=== PATIENT | male | born 1980 | race African-American/Black ===

== ENCOUNTER 2016-12-13 06:09 | Emergency (ER) | payer SELFPAY ==
[~2016-12-13 06:09] MED LIST: LORT5TAB PO; Z.0.NO CURRENT MEDS
[2016-12-13 06:10] VITALS: BP 137/81; PULSE 94; RESP 16; TEMP 98.5; O2SAT 96
--- NOTE | 2016-12-13 06:24 | PD ---
HPI Chief Complaint: Eye Problems/Injury Time Seen by Provider: 06:23 Travel History International Travel<30 days: No Contact w/Intl Traveler<30days: No Traveled to known affect area: No History of Present Illness HPI 36-year-old with no significant medical history presents to the emergency department for evaluation of an area of red on his right eye. Patient states he it does not hurt. He reports no visual disturbances. States that he woke up with it 2 days ago. He attempted Visine with no relief of symptoms. He has had no recent illnesses, fever, or chills. He cannot recall trauma. No other symptoms to report. History Past Medical Histgory Medical History: Denies Significant Hx Social History Alcohol Use: Yes (OCC) Tobacco Use: Yes (1PPD) Allergies-Medications (Allergen,Severity, Reaction): Coded Allergies: Penicillin (Verified Allergy, Unknown, Hives, 12/13/16) Reported Meds & Prescriptions Reported Meds & Active Scripts Active No Active Prescriptions or Reported Medications Review of Systems Except as stated in HPI: all other systems reviewed are Neg Physical Exam Narrative GENERAL: Well-nourished, well-developed male patient in no acute distress SKIN: Focused skin assessment warm/dry. HEAD: Normocephalic. EYES: No scleral icterus. There is a subconjunctival hematoma of the right eye extending from the 9:00 area to the 6:00 area. EOMI. PERRLA. NECK: Supple, trachea midline. No JVD or lymphadenopathy. CARDIOVASCULAR: Regular rate and rhythm without murmurs, gallops, or rubs. RESPIRATORY: Breath sounds equal bilaterally. No accessory muscle use. GASTROINTESTINAL: Abdomen soft, non-tender, nondistended. MUSCULOSKELETAL: No cyanosis, or edema. BACK: Nontender without obvious deformity. No CVA tenderness. Data Data Last Documented VS Vital Signs Date Time Temp Pulse Resp B/P Pulse Ox O2 Delivery O2 Flow Rate FiO2 12/13/16 06:10 98.5 94 16 137/81 96 Room Air [facility] Medical Screen Exam Complete: Yes Emergency Medical Condition: No Differential Diagnosis Subconjunctival hematoma versus corneal abrasion versus keratitis versus iritis Narrative Course 36-year-old male presents to emergency department for evaluation. Physical exam is consistent with a subconjunctival hematoma. There are no limitations range of motion of the eye. No visual disturbances. Patient is advised to monitor it. He is instructed to return immediately with any acute worsening of symptoms. A medical screening exam was performed: At the time of evaluation the presenting medical condition was determined not to be of an emergent nature. The patient was given the option of receiving additional care, but declined. Patient was given options for additional community resources from which to obtain care. The Patient Has Been advised to seek medical attention for their presenting complaint. The patient has been advised to return to the ER at any time if an emergent condition develops. Primary Impression: Subconjunctival hemorrhage, non-traumatic Qualified Code: H11.31 - Subconjunctival hemorrhage, non-traumatic, right Additional Impression: Encounter for medical screening examination Scripts No Active Prescriptions or Reported Meds Condition: Erin Reed December 13, 2016 06:24
== END 2016-12-13 10:06 | disposition left against medical advice (07) ==
LOC: NEPK 06:09
DX: H11.31 Conjunctival hemorrhage, right eye (principal); F17.200 Nicotine dependence, unspecified, uncomplicated
CPT/HCPCS: 99281